=== PATIENT | female | born 1990 | race Caucasian/White ===

== ENCOUNTER 2019-06-09 00:59 | Emergency (ER) | payer OTHER ==
[~2019-06-09] VITALS: Ht 162.6 cm; Wt 98.0 kg
--- NOTE | 2019-06-09 01:02 | ED.ADGEN ---
Adult General Chief Complaint Chief Complaint ".. I stepped in a hole and twisted my ankle and foot... " HPI HPI Patient is a 29 year old FEMALE who presents with above hx and complaints injury to right ankle and foot. Patient states she she stepped into a hole and inverted her right ankle.. Patient denies any upper leg tenderness. Has obvious edema particularly on right lateral malleolus. There is edema ankle and foot. + Draw laxity. Positive foot squeeze elicits pain. Distal sensation intact. Capillary refill equal to left foot. Patient denies any other injury. No history immunosuppression. No History of travel or specific ill contacts. Hx of prior ankle injury as teenager. Denies other injury tonight. Review of Systems Review of Systems Constitutional: Denies fever or chills [] Eyes: Denies change in visual acuity, redness, or eye pain [] HENT: Denies nasal congestion or sore throat [] Respiratory: Denies cough or shortness of breath [] Cardiovascular: No additional information not addressed in HPI [] GI: Denies abdominal pain, nausea, vomiting, bloody stools or diarrhea [] : Denies dysuria or hematuria [] Musculoskeletal: Complaints of Rt ankle pain. Integument: Denies rash or skin lesions [] Neurologic: Denies headache, focal weakness or sensory changes [] Endocrine: Denies polyuria or polydipsia [] All other systems were reviewed and found to be within normal limits, except as documented in this note. Family History Family History Noncontributory Current Medications Current Medications See nursing for home meds Allergies Allergies Allergies Coded Allergies Type Severity Reaction Last Updated Verified No Known Drug Allergies 06/09/19 No See nursing for allergies Physical Exam Physical Exam Constitutional: in acute distress, non-toxic appearance. [] HENT: Normocephalic, atraumatic, bilateral external ears normal, oropharynx moist, no oral exudates, nose normal. [] Eyes: PERRLA, EOMI, conjunctiva normal, no discharge. [] Neck: Normal range of motion, no tenderness, supple, no stridor. [] Cardiovascular:Heart rate regular rhythm, no murmur [] Lungs & Thorax: Bilateral breath sounds clear to auscultation [] Abdomen: Bowel sounds normal, soft, no tenderness, no masses, no pulsatile masses. [] Skin: Warm, dry, no erythema, no rash. [] Back: No tenderness, no CVA tenderness. [] Extremities: No tenderness, no cyanosis, no clubbing, ROM intact, no edema. [] Except findings in right foot and ankle. Does have old scar on Rt. ankle. Neurologic: Alert and oriented X 3, normal motor function, normal sensory function, no focal deficits noted. [] Psychologic: Affect anxious, judgement normal, mood normal. [] EKG EKG [] Radiology/Procedures Radiology/Procedures [][address] [address] IMAGING REPORT Signed PATIENT: ROCIO CANELA ACCOUNT: [id number] : 1990 LOCATION: ER AGE: 29 SEX: F EXAM STATUS: REG ER ORD. PHYSICIAN: DARIO GRANADO MD REASON: Fell into hole, twisted ankle. Pain across joint PROCEDURE: ANKLE RIGHT 3V 3 views right ankle 3 views right foot HISTORY: Pain twisted ankle fell into hole AP lateral oblique views right ankle foot Right ankle: The visualized osseous structures appear normal. IMPRESSION: No acute findings. End impression 3 views right foot: There is mild irregularity of the proximal medial navicular. The remaining visualized osseous structures appear normal. IMPRESSION: Possible mild acute bony injury to the navicular. Electronically signed by: Georgi Cantu III, MD (06/09/2019 2:30 AM) [facility] DICTATED AND SIGNED BY: GEORGI CANTU III, MD DATE: 06/09/19229 CC: DARIO GRANADO MD; PCP,NO ~ Course & Med Decision Making Course & Med Decision Making Pertinent Labs and Imaging studies reviewed. (See chart for details) Distal neurovascular intact post splint. Ice, elevation, rest, splint, crutches and follow up with primary and orthro. Tylenol and Ibuprofen for pain. [] Final Impression Final Impression 1. Right ankle and foot sprain 2. Suspect a Navicular fx Dragon Disclaimer Dragon Disclaimer This electronic medical record was generated, in whole or in part, using a voice recognition dictation system. Dragon Disclaimer This chart was dictated in whole or in part using Voice Recognition software in a busy, high-work load, and often noisy Emergency Department environment. It may contain unintended and wholly unrecognized errors or omissions. DARIO GRANADO MD Jun 09, 2019 01:02
[2019-06-09 01:15] VITALS: BP 136/65
--- NOTE | 2019-06-09 02:33 | RAD ---
3 views right ankle 3 views right foot HISTORY: Pain twisted ankle fell into hole AP lateral oblique views right ankle foot Right ankle: The visualized osseous structures appear normal. IMPRESSION: No acute findings. End impression 3 views right foot: There is mild irregularity of the proximal medial navicular. The remaining visualized osseous structures appear normal. IMPRESSION: Possible mild acute bony injury to the navicular. Electronically signed by: Stephan Torres III, MD (06/09/2019 2:30 AM) [facility]
== END 2019-06-09 03:03 | disposition home or self-care (01) ==
LOC: ER 00:59
DX: S93.401A Sprain of unspecified ligament of right ankle, initial encounter (principal); S93.601A Unspecified sprain of right foot, initial encounter; X50.9XXA Other and unspecified overexertion or strenuous movements or postures, initial encounter; Y93.89 Activity, other specified; Y92.89 Other specified places as the place of occurrence of the external cause; Y99.8 Other external cause status
CPT/HCPCS: 29515; 73610; 73630; 99284

== ENCOUNTER 2019-10-19 17:25 | Emergency (ER) | payer OTHER ==
[~2019-10-19] VITALS: Ht 162.6 cm; Wt 95.6 kg
--- NOTE | 2019-10-19 18:11 | PHYS DOC ---
Past History Past Medical History: Migraines Past Surgical History: No Surgical History Alcohol Use: Rarely Drug Use: None Adult General Chief Complaint Chief Complaint: ABDOMINAL PAIN HPI HPI 29-year-old female presents with concern for tapeworm or other similar parasitic organism. The patient had a bowel movement at work and mixed in with the stool was a white tubular structure that was at least 9 inches long. The patient was very concerned so she collected a specimen from the toilet and bright to the hospital. She has been losing weight, but she has also been on a diet. She has l ost 30lbs in 5 months. She has not had any other significant symptoms. She has had some intermittent bilateral flank pain, worse on the left. She assumed she might be having small kidney stones. She has had these intermittently for a couple of years. She denies fever or chills. She has no idea where she would've come in contact with a parasite. Review of Systems Review of Systems Constitutional: Denies fever or chills [] Eyes: Denies change in visual acuity, redness, or eye pain [] HENT: Denies nasal congestion or sore throat [] Respiratory: Denies cough or shortness of breath [] Cardiovascular: No additional information not addressed in HPI [] GI: Excreted foreign object in feces. Denies abdominal pain, nausea, vomiting, bloody stools or diarrhea [] : Denies dysuria or hematuria [] Musculoskeletal: Denies back pain or joint pain [] Integument: Denies rash or skin lesions [] Neurologic: Denies headache, focal weakness or sensory changes [] Endocrine: Denies polyuria or polydipsia [] All other systems were reviewed and found to be within normal limits, except as documented in this note. Current Medications Current Medications Current Medications Medications (Trade) Dose Ordered Sig/Shahnaz Start Time Stop Time Status Last Admin Dose Admin Sodium Chloride 1,000 ml @ 1,000 mls/hr 1X ONCE 10/19/19 18:15 10/19/19 19:14 Allergies Allergies Allergies Coded Allergies Type Severity Reaction Last Updated Verified No Known Drug Allergies 06/09/19 No Physical Exam Physical Exam Constitutional: Well developed, obese, well nourished, no acute distress, non- toxic appearance. [] HENT: Normocephalic, atraumatic, bilateral external ears normal, oropharynx moist, no oral exudates, nose normal. [] Eyes: PERRLA, EOMI, conjunctiva normal, no discharge. [] Neck: Normal range of motion, no tenderness, supple, no stridor. [] Cardiovascular: Heart rate regular rhythm, no murmur [] Lungs & Thorax: Bilateral breath sounds clear to auscultation [] Abdomen: Bowel sounds normal, soft, no tenderness, no masses, no pulsatile masses. [] Skin: Warm, dry, no erythema, no rash. [] Back: No tenderness, no CVA tenderness. [] Extremities: No tenderness, no cyanosis, no clubbing, ROM intact, no edema. [] Neurologic: Alert and oriented X 3, normal motor function, normal sensory function, no focal deficits noted. [] Psychologic: Affect normal, judgement normal, mood normal. [] Current Patient Data Vital Signs Vital Signs Date Time Temp Pulse Resp B/P (MAP) Pulse Ox O2 Delivery O2 Flow Rate FiO2 10/19/19 17:38 98.1 88 16 137/80 (99) 100 Room Air EKG EKG [] Radiology/Procedures Radiology/Procedures [] Impressions: EXAM: CT Abdomen and Pelvis with IV contrast CLINICAL HISTORY: Abdominal pain, possible tapeworm. COMPARISON: none TECHNIQUE: Helical CT of the abdomen and pelvis was performed following the administration of intravenous contrast. Axial, coronal and sagittal reformatted images were generated. PQRS compliance statement - One or more of the following individualized dose reduction techniques were utilized for this study: 1. Automated exposure control 2. Adjustment of the mA and/or kV according to patient size 3. Use of iterative reconstruction technique FINDINGS: Lower chest: Lung bases are clear. Abdomen and Pelvis: Focal low-attenuation along the falciform ligament likely focal fatty infiltration. Otherwise, no liver lesion. Gallbladder is normal. No biliary ductal dilatation. Spleen is unremarkable. Adrenal glands and pancreas are unremarkable. Symmetric nephrograms. No focal renal lesion. No hydronephrosis. Appendix is normal. No small or large bowel dilatation. Moderate colonic stool content. Moderate to large volume colonic stool content is seen. No bowel obstruction. Prominent mesenteric, retroperitoneal, periportal and perirectal lymph nodes are seen although no lymphadenopathy by size criteria. No abdominal or pelvic ascites. Bladder wall thickening may be seen with cystitis. Bones: Degenerative changes of spine are seen. No aggressive osseous lesion is seen. IMPRESSION: 1. Bladder wall thickening may be seen with cystitis. 2. Focal low-attenuation along the falciform ligament likely focal fatty infiltration 3. No lymphadenopathy by size criteria although a few mildly prominent abdominal and pelvic lymph nodes are seen, possibly reactive. Electronically signed by: Mode Bond MD (10/19/2019 7:46 PM) [id number] DICTATED AND SIGNED BY: MODE BOND MD DATE: 10/19/19 1946 CC: CHRISTIE NICK DO; [facility] [employer]-[facility] ~ Course & Med Decision Making Course & Med Decision Making Pertinent Labs and Imaging studies reviewed. (See chart for details) The patient's CT of the abdomen and pelvis shows some prominent lymph nodes in the abdomen, but none meet abnormal criteria. See official report more details. The patient's labs are unremarkable. Her urinalysis is unremarkable. The object that came out in her feces does appear to be a parasite. The lab is unable to tell me exactly which type because it is a send out. I will treat patient for intestinal parasite with mebendazole for 3 days. [] Dragon Disclaimer Dragon Disclaimer This electronic medical record was generated, in whole or in part, using a voice recognition dictation system. Departure Departure: Impression: Primary Impression: Intestinal parasitism, unspecified Disposition: HOME, SELF-CARE Condition: STABLE Referrals: [facility] NP-C (PCP) Patient Instructions: Intestinal Parasites (Worms)-Brief Scripts Mebendazole (Emverm) 100 Mg Tab.chew 100 MG PO BID for intestinal parasite for 3 Days, #6 TAB.CHEW Prov: CHRISTIE NICK DO 10/19/19 CHRISTIE NICK DO Oct 19, 2019 18:11
[2019-10-19] MEDS ORDERED: IOHEXOL 300 MG/ML 75 ML VIAL. IV ONE (18:15)
[2019-10-19] MEDS ORDERED: IV NORMAL SALINE 1,000ML 1,000 ML IV ONE (18:15)
[2019-10-19 18:35] LABS: BASO % 1 % (0-3); EOS # 0.1 x10^3/uL (0.0-0.7); EOS % 2 % (0-3); HEMATOCRIT 42.4 % (36.0-47.0); LYMPH # 2.3 x10^3/uL (1.0-4.8); LYMPH % 28 % (24-48); MEAN CORPUSCULAR HEMOGLOBIN 28 pg (25-35); MEAN CORPUSCULAR HGB CONC 33 g/dL (31-37); MEAN CORPUSCULAR VOLUME 84 fL (79-100); MONO # 0.7 x10^3/uL (0.0-1.1); MONO % 9 % (0-9); NEUT % 61 % (31-73); PLATELET COUNT 198 x10^3/uL (140-400); RED BLOOD COUNT 5.07 x10^6/uL (3.50-5.40); RED CELL DISTRIBUTION WIDTH 13.7 % (11.5-14.5); WHITE BLOOD COUNT 8.2 x10^3/uL (4.0-11.0)
[2019-10-19 18:53] LABS: CREATININE 0.9 mg/dL (0.6-1.0); GFR 75.1; POTASSIUM 3.9 mmol/L (3.5-5.1)
[2019-10-19 18:59] LABS: ALBUMIN 3.9 g/dL (3.4-5.0); ALBUMIN/GLOBULIN RATIO 0.9 (1.0-1.7); TOTAL BILIRUBIN 0.3 mg/dL (0.2-1.0); TOTAL PROTEIN 8.3 g/dL (6.4-8.2)
[2019-10-19 19:19] LABS: BACTERIA,URINE FEW /HPF (0-FEW); BILIRUBIN,URINE NEG (NEG); CLARITY,URINE HAZY; COLOR,URINE YELLOW; GLUCOSE,URINE NEG (NEG); NITRITE,URINE NEG (NEG); SQUAMOUS EPITHELIAL CELL,UR FEW /LPF; UROBILINOGEN,URINE 0.2 mg/dL (0.2 mg/dL); WBC,URINE OCC /HPF (0-4)
--- NOTE | 2019-10-19 19:49 | RAD ---
EXAM: CT Abdomen and Pelvis with IV contrast CLINICAL HISTORY: Abdominal pain, possible tapeworm. COMPARISON: none TECHNIQUE: Helical CT of the abdomen and pelvis was performed following the administration of intravenous contrast. Axial, coronal and sagittal reformatted images were generated. PQRS compliance statement - One or more of the following individualized dose reduction techniques were utilized for this study: 1. Automated exposure control 2. Adjustment of the mA and/or kV according to patient size 3. Use of iterative reconstruction technique FINDINGS: Lower chest: Lung bases are clear. Abdomen and Pelvis: Focal low-attenuation along the falciform ligament likely focal fatty infiltration. Otherwise, no liver lesion. Gallbladder is normal. No biliary ductal dilatation. Spleen is unremarkable. Adrenal glands and pancreas are unremarkable. Symmetric nephrograms. No focal renal lesion. No hydronephrosis. Appendix is normal. No small or large bowel dilatation. Moderate colonic stool content. Moderate to large volume colonic stool content is seen. No bowel obstruction. Prominent mesenteric, retroperitoneal, periportal and perirectal lymph nodes are seen although no lymphadenopathy by size criteria. No abdominal or pelvic ascites. Bladder wall thickening may be seen with cystitis. Bones: Degenerative changes of spine are seen. No aggressive osseous lesion is seen. IMPRESSION: 1. Bladder wall thickening may be seen with cystitis. 2. Focal low-attenuation along the falciform ligament likely focal fatty infiltration 3. No lymphadenopathy by size criteria although a few mildly prominent abdominal and pelvic lymph nodes are seen, possibly reactive. Electronically signed by: Mode Bond MD (10/19/2019 7:46 PM) [id number]
[2019-10-19 20:36] VITALS: BP 135/76
[2019-10-19] MEDS ORDERED: MEBE100T11 PO (20:44)
== END 2019-10-19 20:50 | disposition home or self-care (01) ==
LOC: ER 17:25
DX: B82.9 Intestinal parasitism, unspecified (principal); G43.909 Migraine, unspecified, not intractable, without status migrainosus
CPT/HCPCS: 36415; 74177; 80053; 81001; 81025; 85025; 87177; 87209; 99285; Q9967; J7030

== ENCOUNTER → 2019-11-16 | Outpatient (CLI) | payer OTHER ==
[2019-10-19 20:36] VITALS: BP 135/76
[~2019-11-16] MED LIST: MEBE100T11 PO
[2019-11-16 16:15] LABS: BASO % 0 % (0-3); EOS # 0.1 x10^3/uL (0.0-0.7); EOS % 1 % (0-3); HEMOGLOBIN 13.9 g/dL (12.0-15.5); LYMPH # 2.1 x10^3/uL (1.0-4.8); LYMPH % 26 % (24-48); MEAN CORPUSCULAR HEMOGLOBIN 28 pg (25-35); MEAN CORPUSCULAR HGB CONC 33 g/dL (31-37); MEAN CORPUSCULAR VOLUME 85 fL (79-100); MONO # 0.6 x10^3/uL (0.0-1.1); MONO % 8 % (0-9); NEUT # 5.4 x10^3uL (1.8-7.7); NEUT % 65 % (31-73); PLATELET COUNT 201 x10^3/uL (140-400); RED BLOOD COUNT 4.95 x10^6/uL (3.50-5.40); WHITE BLOOD COUNT 8.3 x10^3/uL (4.0-11.0)
[2019-11-16 16:27] LABS: ALBUMIN 3.9 g/dL (3.4-5.0); ALBUMIN/GLOBULIN RATIO 0.9 (1.0-1.7); CALCIUM 9.3 mg/dL (8.5-10.1); CREATININE 0.8 mg/dL (0.6-1.0); POTASSIUM 3.9 mmol/L (3.5-5.1); TOTAL BILIRUBIN 0.3 mg/dL (0.2-1.0); TOTAL PROTEIN 8.1 g/dL (6.4-8.2)
[2019-11-17 00:06] LABS: ESTRADIOL LEVEL 53.6 pg/mL (.); FSH 6.4 mIU/mL (.); LUTEINIZING HORMONE 5.6 mIU/mL (.); PROGESTERONE <0.1 ng/mL (.); T3 TOTAL 108 ng/dL (71-180); TESTOSTERONE TOTAL 17 ng/dL (8-48)
[2019-11-17 13:27] LABS: FREE T4 1.04 ng/dL (0.76-1.46); THYROID STIM HORMONE (TSH) 0.892 uIU/mL (0.358-3.740)
[2019-11-18 02:06] LABS: ESTROGEN LEVEL 219 pg/mL (.)
[2019-11-20 14:07] LABS: DHEA 251 ng/dL (31-701)
[2019-11-20 16:07] LABS: ANA INTERP Negative (.)
== END | disposition home or self-care (01) ==
LOC: LAB 15:40
PROVIDERS: ATTEND Registered Nurse
DX: Z13.6 Encounter for screening for cardiovascular disorders (principal); Z13.29 Encounter for screening for other suspected endocrine disorder; N92.6 Irregular menstruation, unspecified; N92.0 Excessive and frequent menstruation with regular cycle; Z87.59 Personal history of other complications of pregnancy, childbirth and the puerperium
CPT/HCPCS: 36415; 80053; 80061; 82626; 82670; 82672; 83001; 83002; 84144; 84403; 84439; 84443; 84480; 85025; 86038; 87086

== ENCOUNTER → 2020-04-10 | Outpatient (CLI) | payer OTHER ==
--- NOTE | 2020-04-11 09:47 | RAD ---
DATE: 04/10/2020 1:45 PM EXAM: DIGITAL DIAGNOSTIC BILATERAL, BREAST LEFT HISTORY: 29-year-old woman complains of left upper outer quadrant breast pain. She is referred for both diagnostic mammography and targeted ultrasound. COMPARISON: None. This will serve as a baseline. Bilateral full field craniocaudal and mediolateral oblique images were obtained using digital technique. This study was interpreted with the benefit of Computerized Aided Detection (CAD). Targeted ultrasound of the upper-outer quadrant left breast and left axilla was also performed. FINDINGS: Breast Density: SCATTERED The breast parenchyma shows scattered fibroglandular densities. Breast parenchyma level B No suspicious masses, microcalcifications or architectural distortion is present to suggest malignancy in either breast. The visualized axillae are unremarkable. Targeted ultrasound of the upper outer left breast revealed no sonographic abnormality and no left axillary adenopathy. IMPRESSION: No mammographic evidence of malignancy. No specific findings to explain left breast pain. BI-RADS CATEGORY: 1 NEGATIVE RECOMMENDED FOLLOW-UP: CLIN FOLLOW UP IMAGING CLINICALLY INDICATED Recommend clinical management of patient's left breast pain and age-appropriate screening mammography in the absence of a clinically suspicious finding (which should be considered for biopsy if present). PQRS compliance statement: Patient information was entered into a reminder system with a target due date for the next mammogram. Mammography is a sensitive method for finding small breast cancers, but it does not detect them all and is not a substitute for careful clinical examination. A negative mammogram does not negate a clinically suspicious finding and should not result in delay in biopsying a clinically suspicious abnormality. "Our facility is accredited by the [employer] Mammography Program."
== END | disposition home or self-care (01) ==
LOC: US 12:49
PROVIDERS: ATTEND Family Medicine
DX: R92.2 Inconclusive mammogram (principal); N64.4 Mastodynia
CPT/HCPCS: 76641; 77066

== ENCOUNTER → 2020-08-29 | Outpatient (CLI) | payer OTHER ==
--- NOTE | 2020-08-29 09:20 | RAD ---
OB ultrasound less than 14 weeks 08/29/2020 CLINICAL HISTORY: First trimester . TECHNIQUE: Using the distended urinary bladder as a sonographic window, a real-time ultrasound examin ation of the gravid uterus was performed. Multiple images were obtained. FINDINGS: A gestational sac is seen within the endometrial canal within the body/fundus of the uterus . Within this gestational sac an embryonic pole and associated yolk sac are seen. The CRL of the embr yonic pole measures 2.84 cm. This corresponds to an estimated gestational age by ultrasound of 9 week s 5 days plus or minus a standard deviation of 6 days. Embryonic cardiac activity is seen with a hear t rate of 168 bpm. The placenta is not yet developed. The amniotic fluid volume is within normal limi ts. The uterus is otherwise within normal limits. The maternal cervix is closed. It measures 3.1 cm i n length. Both ovaries are within normal limits in size and echogenicity. The right ovary measures 4.0 x 2.2 x 1.6 cm in size. The left ovary measures 2.8 x 2.3 x 1.4 cm in size. No adnexal mass is seen. No free fluid is noted. IMPRESSION: Single living IUP with an estimated gestational age by ultrasound of 9 weeks 5 days plus or minus a standard deviation of 6 days. The estimated date of delivery by ultrasound is 03/29/2021. Electronically signed by: Matt Garcia MD (08/29/2020 9:18 AM) [id number]
== END ==
LOC: US 07:51
PROVIDERS: ATTEND Obstetrics & Gynecology
DX: Z34.91 Encounter for supervision of normal pregnancy, unspecified, first trimester (principal); Z3A.09 9 weeks gestation of pregnancy
CPT/HCPCS: 76801

== ENCOUNTER 2020-10-09 12:18 | Emergency (ER) | payer OTHER ==
[~2020-10-09] VITALS: Ht 162.6 cm; Wt 94.8 kg
--- NOTE | 2020-10-09 12:52 | PHYS DOC ---
Past History Past Medical History: Migraines Past Surgical History: No Surgical History Alcohol Use: Rarely Drug Use: None Adult General Chief Complaint Chief Complaint: CHEST WALL PAIN HPI HPI Patient is a 30-year-old female presents emergency department complaining of left arm pain with left-sided chest pain that started approximately 2 hours ago while at a local dog park with her 2 dogs. Patient reports an initial pain of 6-7 over 10 pain on a 1-10 pain scale upon onset, denied any shortness of breath, denied diaphoretic episodes, denied nausea, vomiting, diarrhea, or abdominal pain. Patient denied any chest palpitations, denied any chest congestion, nasal congestion, recent fever or chills. Patient denies any loss of taste or loss of smell, body aches or general malaise. Patient states her dog is way 45 pounds and 65 pounds, she denies any injury that she can recall. Patient reports she is 15 weeks , 5 para 0 SAB 4, patient states she is a high risk , denies any problems with her current , states she had a healthy sonogram approximately 10 days ago at her [employer] office, states that she cannot feel the baby move however she has not been able to feel the baby move during this . Patient denies any concerns for this current and feels that her baby is safe. Patient denies any vaginal discharge, vaginal bleeding, STI concerns. Patient denies any surgeries, denies any allergies to medications, states she only takes a vitamin for medications. Patient denies cigarette smoking, denies alcohol consumption, denies illicit drug use. Review of Systems Review of Systems 14 body systems of review of systems have been reviewed. See HPI for pertinent positives and negative responses, otherwise all other systems are negative, nonpertinent or noncontributory. Allergies Allergies Allergies Coded Allergies Type Severity Reaction Last Updated Verified No Known Drug Allergies 06/09/19 No Physical Exam Physical Exam Constitutional: Well developed, well nourished, no acute distress, non-toxic appearance. 30-year-old female in no apparent distress. HENT: Normocephalic, atraumatic, bilateral external ears normal, oropharynx moist, no oral exudates, nose normal. Eyes: PERRLA, EOMI, conjunctiva normal, no discharge. Neck: Normal range of motion, no tenderness, supple, no stridor. Cardiovascular:Heart rate regular rhythm, no murmur Lungs & Thorax: Bilateral breath sounds clear to auscultation all lung anderson, pain to palpation to left upper chest and anterior shoulder, increased pain with active range of motion of left upper extremity, increased pain with deep inspiration and expiration. Distal cap refill of upper extremities less than 2 seconds, 2+ bilateral radial pulses. No crepitus appreciated, no deformity appreciated, no ecchymotic areas of the thorax appreciated. Abdomen: Bowel sounds normal, soft, no tenderness, no masses, no pulsatile masses. Skin: Warm, dry, no erythema, no rash. Back: No tenderness, no CVA tenderness. Extremities: No tenderness, no cyanosis, no clubbing, ROM intact, no edema. Neurologic: Alert and oriented X 3, normal motor function, normal sensory function, no focal deficits noted. Psychologic: Affect normal, judgement normal, mood normal. Current Patient Data Lab Results Laboratory Tests Test 10/09/20 12:40 10/09/20 13:40 White Blood Count 10.5 x10^3/uL Red Blood Count 4.45 x10^6/uL Hemoglobin 12.5 g/dL Hematocrit 38.1 % Mean Corpuscular Volume 86 fL Mean Corpuscular Hemoglobin 28 pg Mean Corpuscular Hemoglobin Concent 33 g/dL Red Cell Distribution Width 14.3 % Platelet Count 204 x10^3/uL Neutrophils (%) (Auto) 76 % Lymphocytes (%) (Auto) 16 % Monocytes (%) (Auto) 7 % Eosinophils (%) (Auto) 1 % Basophils (%) (Auto) 0 % Neutrophils # (Auto) 7.9 x10^3uL Lymphocytes # (Auto) 1.7 x10^3/uL Monocytes # (Auto) 0.7 x10^3/uL Eosinophils # (Auto) 0.1 x10^3/uL Basophils # (Auto) 0.0 x10^3/uL Maternal Serum HCG Beta Subunit 91665 mIU/mL Sodium Level 138 mmol/L Potassium Level 3.9 mmol/L Chloride Level 103 mmol/L Carbon Dioxide Level 25 mmol/L Anion Gap 10 Blood Urea Nitrogen 9 mg/dL Creatinine 0.7 mg/dL Estimated GFR (Cockcroft-Gault) 99.6 BUN/Creatinine Ratio 13 Glucose Level 92 mg/dL Calcium Level 8.9 mg/dL Magnesium Level 1.9 mg/dL Total Bilirubin 0.2 mg/dL Aspartate Amino Transf (AST/SGOT) 15 U/L Alanine Aminotransferase (ALT/SGPT) 21 U/L Alkaline Phosphatase 49 U/L Creatine Kinase 45 U/L Creatine Kinase MB (Mass) < 0.5 ng/mL Creatine Kinase MB Relative Index % Troponin I Quantitative < 0.017 ng/mL [id number] Natriuretic Peptide 41 pg/mL Total Protein 7.3 g/dL Albumin 2.9 g/dL Albumin/Globulin Ratio 0.7 Lipase 124 U/L Urine Collection Type Unknown Urine Color Straw Urine Clarity Clear Urine pH 6.0 Urine Specific [place] 1.010 Urine Protein Neg Urine Glucose (UA) Neg mg/dL Urine Ketones (Stick) Neg mg/dL Urine Blood Neg Urine Nitrite Neg Urine Bilirubin Neg Urine Urobilinogen Dipstick 0.2 mg/dL Urine Leukocyte Esterase Neg Urine RBC Rare /HPF Urine WBC Occ /HPF Urine Squamous Epithelial Cells Few /LPF Urine Bacteria Few /HPF Current Medications Medications (Trade) Dose Ordered Sig/Shahnaz Route PRN Reason Start Time Stop Time Status Last Admin Dose Admin Acetaminophen (Tylenol) 650 mg 1X ONCE PO 10/09/20 13:00 10/09/20 13:02 DC EKG EKG EKG performed at 1227 by house respiratory therapy staff, shows a normal sinus rhythm without ectopy with a heart rate of 86 bpm, CO interval 0.152, QTc interval 0.417, no acute STEMI, no ACS, no acute ischemia appreciated, EKG interpreted by ED attending physician Dr. SAHU Radiology/Procedures Radiology/Procedures [] Heart Score HEART Score for Chest Pain: HEART Score for Chest Pain Response (Comments) Value History Slighlty/Non-Suspicious 0 ECG Normal 0 Age < 45 0 Risk Factors No Risk Factors 0 Troponin < Normal Limit 0 Total 0 Risk Factors: Risk Factors: DM, Current or recent (<one month) smoker, HTN, HLP, family history of CAD, obesity. Risk Scores: Risk Factors: DM, Current or recent (<one month) smoker, HTN, HLP, family history of CAD, obesity. Course & Med Decision Making Course & Med Decision Making Pertinent Labs and Imaging studies reviewed. (See chart for details) 30-year-old female, vital signs reviewed, presents to the ER with concerns of chest pain. Patient's physical examination was consistent with chest wall pain, patient refused x-ray of chest stating that she is a high risk and she feels that it is unnecessary at this time. Will draw patient's labs and urine for cardiac work-up, the patient was nontoxic in appearance, was not hypoxic. This is unlikely related to a cardiopulmonary process. Patient was walking her 2 large dogs at a dog park, possible injury during activity with her dogs today. Patient was given 650 mg of Tylenol in the ED today, patient states that her pain was relieved. The patient's heart score equaled 0. Patient wishes to go home at this time. Patient continues to deny offered and recommended chest x- ray, patient continued to refuse. The patient's urine was not infected, baseline beta-hCG was drawn shows within normal limits 20,234, patient's heart tones at bedside were 150 evaluated with Doppler. This is unlikely a cardiopulmonary event, most likely chest wall pain due to injury with playing with large dogs, patient gave verbal understanding of discharge home instructions, return to ER precautions and concerns, will follow up with her [employer] appointments and primary care doctor as appointments arrival, patient gave verbal understanding of return to ER precautions and concerns, was discharged home without incident. Dragon Disclaimer Dragon Disclaimer This electronic medical record was generated, in whole or in part, using a voice recognition dictation system. Departure Departure: Impression: Primary Impression: Chest wall pain Additional Impression: Disposition: 01 DC HOME SELF CARE/HOMELESS Condition: GOOD Referrals: KRISTIN MONTOYA MD (PCP) Patient Instructions: Chest Wall Pain Additional Instructions: You were evaluated today for chest pain, I did not find any concerning lab values though it make me suspect this pain is coming from your heart or your lungs, your physical examination was consistent with a chest wall injury, we discussed running your urine to rule out a urinary tract infection, at this time your urine analysis is still in process, if I find any concerning lab value in your urine I will call you at the number you left with the drug room clerk and prescribed you antibiotic medication at that time. Please return to the emergency department for worsening symptoms or other concerns, please keep your OB appointments. You may continue to use [id number] Tylenol for ongoing aches and pains. EMERGENCY DEPARTMENT GENERAL DISCHARGE INSTRUCTIONS Thank you for coming to [facility] (ED) today and trusting us with you care. We trust that you had a positivie experience in our Emergency Department. If you wish to speak to the department management, you may call the director at . YOUR FOLLOW UP INSTRUCTIONS ARE FOLLOWS: 1. Do you have a private Doctor? If you do not have a private doctor, please ask for a resource list of physicians or clinics that may be able to assist you with follow up care. 2. The Emergency Physician has interpreted your x-rays. The X-Ray specialist will also review them. If there is a change in the findings, you will be notified in 48 hours when at all possible. 3. A lab test or culture has been done, your results will be reviewed and you will be notified if you need a change in treatment. ADDITIONAL INSTRUCTIONS AND INFORMATION: 1. Your care today has been supervised by a physician who is specially trained in emergency care. Many problems require more than one evaluation for a complete diagnosis and treatment. We recommend that you schedule your follow up appointment as recommended to ensure complete treatment of you illness or injury. If you are unable to obtain follow up care and continue to have a problem, or if your condition worsens, we recommend that you return to the ED. 2. We are not able to safely determine your condition over the phone nor are we able to give sound medical advice over the phone. For these safety reasons, if you call for medical advice we will ask you to come to the ED for further evaluation. 3. If you have any questions regarding these discharge instructions please call the ED at [phone]. SAFETY INFORMATION: In the interest of safety, wellness, and injury prevention; we encourage you to wear your sealbelt, if you smoke; quite smoking, and we encourage family to use a protective helmet for bicycling and other sporting events that present an increased risk for head injury. IF YOUR SYMPTOMS WORSEN OR NEW SYMPTOMS DEVELOP, OR YOU HAVE CONCERNS ABOUT YOUR CONDITION; OR IF YOUR CONDITION WORSENS WHILE YOU ARE WAITING FOR YOUR FOLLOW UP APPOINTMENT; EITHER CONTACT YOUR PRIMARY CARE DOCTOR, THE PHYSICIAN WHOSE NAME AND NUMBER YOU WERE GIVEN, OR RETURN TO THE ED IMMEDIATELY. Problem Qualifiers Additional Impression: Weeks of gestation: 15 weeks Qualified Codes: Z3A.15 - 15 weeks gestation of ADAL LOYA APRN Oct 09, 2020 12:52
[2020-10-09] MEDS ORDERED: ACETAMINOPHEN 325 MG TABLET PO ONE (13:00)
[2020-10-09 13:07] LABS: BASO % 0 % (0-3); EOS # 0.1 x10^3/uL (0.0-0.7); EOS % 1 % (0-3); HEMATOCRIT 38.1 % (36.0-47.0); HEMOGLOBIN 12.5 g/dL (12.0-15.5); LYMPH # 1.7 x10^3/uL (1.0-4.8); LYMPH % 16 % (24-48); MEAN CORPUSCULAR HEMOGLOBIN 28 pg (25-35); MEAN CORPUSCULAR HGB CONC 33 g/dL (31-37); MEAN CORPUSCULAR VOLUME 86 fL (79-100); MONO # 0.7 x10^3/uL (0.0-1.1); MONO % 7 % (0-9); NEUT # 7.9 x10^3uL (1.8-7.7); NEUT % 76 % (31-73); PLATELET COUNT 204 x10^3/uL (140-400); RED BLOOD COUNT 4.45 x10^6/uL (3.50-5.40); RED CELL DISTRIBUTION WIDTH 14.3 % (11.5-14.5); WHITE BLOOD COUNT 10.5 x10^3/uL (4.0-11.0)
[2020-10-09 13:16] LABS: ANION GAP 10 (6-14); BLOOD UREA NITROGEN 9 mg/dL (7-20); BUN/CREATININE RATIO 13 (6-20); CALCIUM 8.9 mg/dL (8.5-10.1); CARBON DIOXIDE 25 mmol/L (21-32); CHLORIDE 103 mmol/L (98-107); CREATININE 0.7 mg/dL (0.6-1.0); GFR 99.6; GLUCOSE 92 mg/dL (70-99); POTASSIUM 3.9 mmol/L (3.5-5.1); SODIUM 138 mmol/L (136-145)
[2020-10-09 13:34] VITALS: BP 110/65
[2020-10-09 13:51] LABS: ALBUMIN 2.9 g/dL (3.4-5.0); ALBUMIN/GLOBULIN RATIO 0.7 (1.0-1.7); ALK PHOS 49 U/L (46-116); ALT (SGPT) 21 U/L (14-59); AST (SGOT) 15 U/L (15-37); LIPASE 124 U/L (73-393); MAGNESIUM 1.9 mg/dL (1.8-2.4); TOTAL BILIRUBIN 0.2 mg/dL (0.2-1.0); TOTAL PROTEIN 7.3 g/dL (6.4-8.2)
--- NOTE | 2020-10-09 13:53 | EKG ---
[address] [address] Test Date: 2020-10-09 Test Time: 12:27:25 Pat Name: ROCIO CANELA Department: Room: Gender: F Instrument Technologist: BENITO : 1990 Requested By: ADAL LOYA Order Number: [id number] Reading MD: Measurements Intervals [place] Rate: 86 P: 47 VA: 152 QRS: 59 QRSD: 80 T: 33 QT: 346 QTc: 417 Interpretive Statements SINUS ARRHYTHMIA OTHERWISE NORMAL ECG RI6.02 No previous ECG available for comparison
[2020-10-09 14:03] LABS: BACTERIA,URINE FEW /HPF (0-FEW); BILIRUBIN,URINE NEG (NEG); CLARITY,URINE CLEAR; COLOR,URINE STRAW; GLUCOSE,URINE NEG (NEG); NITRITE,URINE NEG (NEG); RBC,URINE RARE /HPF (0-2); SQUAMOUS EPITHELIAL CELL,UR FEW /LPF; UROBILINOGEN,URINE 0.2 mg/dL (0.2 mg/dL); WBC,URINE OCC /HPF (0-4)
== END 2020-10-09 13:58 | disposition home or self-care (01) ==
LOC: ER 12:18
DX: O26.892 Other specified pregnancy related conditions, second trimester (principal); R07.89 Other chest pain; M79.602 Pain in left arm; G43.909 Migraine, unspecified, not intractable, without status migrainosus
CPT/HCPCS: 36415; 80053; 81001; 82553; 83690; 83735; 83880; 84484; 84702; 85025; 93005; 99284

== ENCOUNTER → 2020-11-11 | Outpatient (CLI) | payer OTHER ==
--- NOTE | 2020-11-11 17:12 | RAD ---
US OB >14 WEEKS Clinical Indication: ROUTINE SURVEY. LMP 06/23/2020 Comparison: 08/29/2020 Technique: Multiple grayscale images, color Doppler, and M-mode images of the uterus are obtained. Findings: There is a single intrauterine gestation in vertex presentation. The placenta is anterior in location without evidence of placenta previa. The amount of amniotic fluid appears appropriate. Cervical yaima gth is 3.9 cm. Biometrical data: BPD = 4.81 cm for 20 weeks 4 days. HC = 17.85 cm for 20 weeks 2 days. AC = 14.97 cm for 20 weeks 2 days. FL = 3.59 cm for 21 weeks 3 days. CI ratio = 79.2. HC/AC ratio = 1.19. FL/HC ratio = 20.1. FL/AC ratio = 24.0. Overall, the estimated sonographic gestational age is 20 weeks 5 days for an estimated date of delive ry of 03/26/2021. The estimated date of delivery provided by the last menstrual period is 03/30/2021. Estimated weight is 371 grams. A 4 chamber heart is identified with positive cardiac activity. The estimated heart rate is 158 beats per minute. Bilateral upper and lower extremities are identified. There is a three-vessel cord with cord insertion visualized. stomach and urinary bladder are identified. Both kidneys are seen. The spine and brain are unremarkable. No gross anatomic abnormalities are identified. Impression: Single live intrauterine gestation with estimated sonographic gestational age of 20 weeks 5 days for an estimated date of delivery of 03/26/2021. Electronically signed by: Enrrique Roque MD (11/11/2020 5:09 PM) [id number]
== END ==
LOC: US 09:25
PROVIDERS: ATTEND Obstetrics & Gynecology
DX: Z34.92 Encounter for supervision of normal pregnancy, unspecified, second trimester (principal); Z3A.20 20 weeks gestation of pregnancy
CPT/HCPCS: 76805

== ENCOUNTER → 2020-11-25 | Outpatient (CLI) | payer OTHER | LOC: LAB 12:30 | PROVIDERS: ATTEND Obstetrics & Gynecology | DX: Z34.92 Encounter for supervision of normal pregnancy, unspecified, second trimester (principal); Z3A.22 22 weeks gestation of pregnancy | CPT/HCPCS: 36415; 81511 ==